=== PATIENT | male | born 1980 | race American Indian/Alaskan Native ===

== ENCOUNTER 2018-05-16 20:12 | Emergency (ER) | payer SELFPAY ==
--- NOTE | 2018-05-16 20:38 | Emergency Department Report ---
Blank Doc - Documentation Documentation: Patient, an adult male, reportedly brought in for syncopal episode while in line at fast food restaurant, with reported loss of consciousness, striking head , sustaining small laceration above left eye, transported by EMS stable, awake, and apparently neurologically normal on arrival, but continuing to refuse to answer questions. Patient refuses to answer questions to nurse at intake, although clearly awake, aware of environment, grossly intact neurologically. Patient was walking out the door at time of my examination, and as I confronted patient directly [id number], requesting him to come back in, patient purposely ignored my questions, ambulated without any signs of distress or unsteadiness, and continued leaving emergency department. Given patient's persistent and determined focused effort to refuse to answer questions, I have insufficient cause to consider patient mentally impaired, and instead the patient was alert, consciously and deliberately refusing to participate in his care, and he exhibited sufficient signs of deliberation in his decision to department AMA and prior to any treatment, and patient's visit terminated on the basis of left without treatment.
== END 2018-05-16 20:33 | disposition left against medical advice (07) ==
LOC: ED 20:12
DX: R55 Syncope and collapse (principal); Z53.21 Procedure and treatment not carried out due to patient leaving prior to being seen by health care provider

== ENCOUNTER 2022-08-02 19:30 | Emergency (ER) | payer SELFPAY ==
[2022-08-02] MEDS ORDERED: ALBUTEROL 2.5 MG/3 ML NEBU IH ONE (23:54)
[2022-08-02] MEDS ORDERED: IPRATROPIUM 0.02% NEBU 2.5 ML IH ONE (23:54)
[2022-08-02] MEDS ORDERED: LORazepam 2 MG/ML VIAL IM ONE (23:59)
[2022-08-03] MEDS ORDERED: IPRATROPIUM 0.02% NEBU 2.5 ML IH ONE (00:05)
[2022-08-03] MEDS ORDERED: ALBUTEROL 2.5 MG/3 ML NEBU IH ONE (00:05)
[2022-08-03 00:38] LABS: Hematocrit 43.9 % (35.5-45.6); Hemoglobin 14.6 gm/dl (11.8-15.2); Mean Corpuscular HGB Conc 33 % (32-34); Mean Corpuscular Volume 98 fl (84-94); Platelet Count 211 K/mm3 (140-440); Red Blood Count 4.48 M/mm3 (3.65-5.03)
--- NOTE | 2022-08-03 00:59 | Emergency Department Report ---
ED General Adult HPI - General Chief complaint: Anxiety Stated complaint: TROUBLE BREATHING PUI?: No Time Seen by Provider: 08/02/22 23:52 Source: patient Mode of arrival: Ambulatory Limitations: No Limitations - History of Present Illness Initial comments: This is a 42-year-old male who I first saw the patient as he was being wheeled from fast-track to the emergency room while seen patient in the fast track. Patient was wheeled in a wheelchair hunched over in no acute distress. During my evaluation in the ER patient is literally jumping up and down in the past and that he cannot breath. Patient said that his only medical history is HIV. Patient said that he feels anxious. Patient denies any other discomfort. Denies fever chill night sweat dizziness blurred vision lightheadedness headache tinnitus ear pain runny nose sore throat loss of taste loss of smell cough abdominal pain nausea vomiting diarrhea constipation joint pain muscle pain new rash heat or cold intolerance. - Related Data Allergies Allergy/AdvReac Type Severity Reaction Status Date / Time sulfamethoxazole Allergy Unknown Verified 08/02/22 19:37 [From Bactrim] trimethoprim [From Bactrim] Allergy Unknown Verified 08/02/22 19:37 ED Review of Systems ROS: Stated complaint: TROUBLE BREATHING Other details as noted in HPI Comment: All other systems reviewed and negative Constitutional: no symptoms reported Eyes: as per HPI ENT: as per HPI Respiratory: shortness of breath Cardiovascular: as per HPI Endocrine: no symptoms reported Gastrointestinal: as per HPI Genitourinary: as per HPI Musculoskeletal: as per HPI Skin: as per HPI Neurological: as per HPI Psychiatric: as per HPI Hematological/Lymphatic: as per HPI ED Past Medical Hx - Past Medical History Previous Medical History?: No Additional medical history: refuses to answer - Surgical History Past Surgical History?: No Additional Surgical History: refuses to answer - Social History Smoking Status: Unknown if ever smoked Substance Use Type: Alcohol ED Physical Exam - General Limitations: No Limitations General appearance: alert, other (hysterically jumping up and down the bed as if he can't sit still.) - Head Head exam: Present: atraumatic, normocephalic, normal inspection - Eye Eye exam: Present: normal appearance, PERRL, EOMI Pupils: Present: normal accommodation - ENT ENT exam: Present: normal exam, mucous membranes moist - Neck Neck exam: Present: normal inspection, full ROM - Respiratory Respiratory exam: Present: normal lung sounds bilaterally, accessory muscle use. Absent: respiratory distress, wheezes, rales, rhonchi, stridor, chest wall tenderness, decreased breath sounds, prolonged expiratory - Cardiovascular Cardiovascular Exam: Present: regular rate, normal rhythm, normal heart sounds - GI/Abdominal GI/Abdominal exam: Present: soft - Extremities Exam Extremities exam: Present: normal inspection, full ROM, normal capillary refill - Back Exam Back exam: Present: normal inspection, full ROM - Neurological Exam Neurological exam: Present: alert, oriented X3, CN II-XII intact - Psychiatric Psychiatric exam: Present: normal affect, normal mood - Skin Skin exam: Present: normal color ED Course Vital Signs 08/02/22 08/03/22 08/03/22 19:33 00:03 00:20 Temperature 97.3 F L Pulse Rate 72 73 Pulse Rate [ Bilateral Throughout] Respiratory 22 18 Rate Respiratory Rate [Bilateral Throughout] Blood Pressure 117/87 Blood Pressure [Left] O2 Sat by Pulse 97 100 Oximetry 08/03/22 08/03/22 08/03/22 00:30 00:46 00:51 Temperature Pulse Rate 66 96 H Pulse Rate [ 83 Bilateral Throughout] Respiratory 14 19 Rate Respiratory 22 Rate [Bilateral Throughout] Blood Pressure 142/94 128/74 Blood Pressure [Left] O2 Sat by Pulse 100 Oximetry 08/03/22 08/03/22 08/03/22 01:00 01:16 01:30 Temperature Pulse Rate 98 H 69 73 Pulse Rate [ Bilateral Throughout] Respiratory 24 17 20 Rate Respiratory Rate [Bilateral Throughout] Blood Pressure 120/66 108/69 116/76 Blood Pressure [Left] O2 Sat by Pulse Oximetry 08/03/22 01:32 Temperature 98.1 F Pulse Rate 69 Pulse Rate [ Bilateral Throughout] Respiratory 20 Rate Respiratory Rate [Bilateral Throughout] Blood Pressure Blood Pressure 108/69 [Left] O2 Sat by Pulse 100 Oximetry - Reevaluation(s) Reevaluation #1: 08/03/22 04:53 PATIENT IS ASLEEP. WILL D/C. BIOCHEMICALLY AND RADIOGRAPHICALLY NORMAL. ED Medical Decision Making - Lab Data Result diagrams: 08/03/22 00:30 08/03/22 00:30 Critical care attestation.: If time is entered above; I have spent that time in minutes in the direct care of this critically ill patient, excluding procedure time. ED Disposition Clinical Impression: Panic anxiety syndrome Disposition: 01 HOME / SELF CARE / HOMELESS Is pt being admited?: No Does the pt Need Aspirin: No Condition: Stable Instructions: Panic Attack, [id number] Referrals: PRIMARY CARE, [Primary Care Provider] - 3-5 Days Time of Disposition: 04:53
[2022-08-03 01:10] LABS: Alanine Aminotransferase 14 units/L (7-56); Albumin 4.3 g/dL (3.9-5); BUN/Creatinine Ratio 14; Blood Urea Nitrogen 15 mg/dL (9-20); Calcium 8.9 mg/dL (8.4-10.2); Hemolysis Index 4
--- NOTE | 2022-08-03 01:18 | XRay Report ---
CHEST 1 VIEW INDICATION / CLINICAL INFORMATION: sob. COMPARISON: None available. FINDINGS: SUPPORT DEVICES: None. HEART / MEDIASTINUM: No significant abnormality. LUNGS / PLEURA: The lungs are hyperinflated. No superimposed acute pulmonary or pleural disease. No p neumothorax. ADDITIONAL FINDINGS: No significant additional findings. IMPRESSION: 1. Hyperinflation of the lungs. No acute superimposed disease. Signer Name: Stephani Sánchez MD Signed: 08/03/2022 1:14 AM Workstation Name: [id number]
[2022-08-03 01:42] VITALS: BP 108/69
== END 2022-08-03 05:02 | disposition home or self-care (01) ==
LOC: ED 19:30
DX: F41.0 Panic disorder [episodic paroxysmal anxiety] (principal); Z91.09 Other allergy status, other than to drugs and biological substances
CPT/HCPCS: 36415; 71045; 80053; 83880; 85027; 85379; 94640; 96372; 99284; J2060; 94644